=== PATIENT | female | born 1980 | race Caucasian/White ===

== ENCOUNTER 2016-07-29 21:15 | Inpatient (IN) | payer MEDICAID ==
[~2016-07-29] VITALS: Ht 154.9 cm; Wt 67.1 kg
[2016-07-29] VITALS (11 sets, daily range): BP systolic 109–121; BP diastolic 67–81; PULSE 74–88; RESP 16–18; TEMP 98
[~2016-07-29 21:15] MED LIST: ACYC800T PO; BUSP1TAB PO; PREN1TAB PO; RANI150T PO; ZOFR4TAB PO
[2016-07-29] MEDS ORDERED: LACTATED RINGER'S 1000 ML INJ 1,000 ML IV PRN (21:55)
[2016-07-29] MEDS ORDERED: LACTATED RINGER'S 1000 ML INJ 1,000 ML IV SCH (21:55)
[2016-07-29] MEDS ORDERED: SODIUM CHLORID 0.9% 500 ML INJ 500 ML IV PRN (22:00)
[2016-07-29] MEDS ORDERED: MINERAL OIL 10 ML VIAL TOPICAL PRN (22:00)
[2016-07-29] MEDS ORDERED: LIDOCAINE HCL 1% 50 ML VIAL I-DERMAL PRN (22:00)
[2016-07-29] MEDS ORDERED: OXYTOCIN 30 UNITS-500ML PREMIX 500 ML IV ONE (22:00)
[2016-07-29] MEDS ORDERED: LIDOCAINE HCL 1% 50 ML VIAL INFIL PRN (22:00)
[2016-07-29] MEDS ORDERED: CITRIC ACID-SODIUM CITRATE LIQ 30 ML UDC PO SCH (22:00)
--- NOTE | 2016-07-29 22:01 | HHI.HP ---
HPI Chief Complaint Contraction pain Date Seen: Jul 29, 2016 Travel History International Travel<30 Days: No Contact w/Intl Traveler<30Days: No Known Affected Area: No History of Present Illness HPI Patient is a 35-year-old white female at 39 weeks presents planning regular painful contractions. Denies bleeding or rupture the membranes contractions are regular and heart rate tracing is reactive. [facility] records are available Para: 3 : 4 History Obstetric History Obstetric History 3 vaginal deliveries Family History Family History: Negative Social History Alcohol Use: No Tobacco Use: Yes Substance Abuse: No Allergies-Medications (Allergen,Severity, Reaction): Coded Allergies: No Known Allergies (Verified , 07/29/16) Home Meds Active Scripts Acyclovir 800 Mg [id number] Mg PO BID #60 TAB Ref 0 Prov:Edna Buchanan CNM [employer]ILLANCE SUPERVISOR 07/29/16 Ranitidine 150 Mg [id number] Mg PO BID #60 TAB Ref 4 Prov:Luana Romero SURVEILLANCE SUPERVISOR 05/27/16 Reported Medications W/O A Vit W/ Fe Fumar (Vitafol-Jacki 18-0.6-0.4 mg)1 Tab Tab Po #60 03/21/16 Ondansetron (Zofran)4 Mg Tab4 Mg PO Q6HR PRN (NAUSEA OR VOMITING) #10 TAB Ref 0 03/21/16 Buspirone 7.5 Mg Tab7.5 Mg PO BID Ref 0 03/21/16 Discontinued Reported Medications Acyclovir 800 Mg [id number] Mg PO BID #60 TAB Ref 0 03/21/16 Review of Systems General / Constitutional: No: Fever, Weight Gain, Chills, Other Eyes: No: Diploplia, Blurred Vision, Visual changes, Pain, Photophobia HENT: No: Headaches, Vertigo, Lightheadedness Cardiovascular: No: Irregular Rhythm, Chest Pain or Discomfort, Palpitations, Tachycardia, Syncope, Varicosities, Edema, Cyanosis Respiratory: No: Cough, Short of Breath, Other Gastrointestinal: No: Nausea, Vomiting, Diarrhea Genitourinary: No: Decreased Urinary Output, Oliguria Musculoskeletal: No: Limited ROM, Weakness, Cramping, Edema, Pain Skin: No Rash, No Itching, No Dryness, No Lumps, No Change in Pigmentation, No Change in Nails, No Alopecia, No Lesions Neurologic: No: Weakness, Dizziness, Syncope, Focal Abnormalities, Coordination Problem, Headache, Slurred Speech, Seizures Psychiatric: No: Depression, Suicidal Ideations, Homicidal Ideation Endocrine: No: Heat Intolerance, Cold Intolerance, Polydipsia, Polyuria, Other Physical Exam Narrative GENERAL: Well-nourished, well-developed patient. SKIN: Warm and dry. HEAD: Normocephalic and atraumatic. EYES: No scleral icterus. No injection or drainage. ENT: No nasal drainage noted. Mucous membranes pink. Airway patent. NECK: Supple, trachea midline. No JVD. CARDIOVASCULAR: Regular rate and rhythm without murmurs, gallops, or rubs. RESPIRATORY: Breath sounds equal bilaterally. No accessory muscle use. BREASTS: Bilateral exam showed no masses , no retractions, no nipple discharge. ABDOMEN/GI: Abdomen soft, non-tender, bowel sounds present, no rebound, no guarding Gravid to [39-] weeks size Fundal Height: [39-] GENITOURINARY: External Genitalia: intact and normal in appearance BUS glands: [-] Cervix: [-] Dilatation: [4-] Effacement: [70-] Station: [-3] Presentation: [vtx-] Membranes: [intact ] Uterine Contractions: [reg-] FHT's: Category: [-1] Baseline: [-144] Reactive: [-yes] Variability: [mod-] Decels: [-none] EXTREMITIES: No cyanosis or edema. BACK: Nontender without obvious deformity. No CVA tenderness. NEUROLOGICAL: Awake and alert. Motor and sensory grossly within normal limits. Five out of 5 muscle strength in all muscle groups. Normal speech. Data Data Orders Admit To Inpatient (07/29/16 ) Vital Signs (Adult) .Per protocol (07/29/16 21:55) ^ Heart (07/29/16 21:55) ^ Amnioinfusion (07/29/16 21:55) Urinary Catheter Management .ONCE (07/29/16 21:55) Diet Npo (07/30/16 Breakfast) Lactated Ringer's 1000 Ml Inj (Lr 1000 M (07/29/16 21:55) Assessment/Plan Assessment and Plan This patient is a 35-year-old white female at 39 weeks presents in labor. Cervix is 4 cm 70% -3 station ballotable vertex intact membranes, no vaginal bleeding noted. [facility] records are available [facility] Plan this patient be admitted for labor management, augmentation if needed and vaginal delivery will be anticipated Fredis Hernández II, MD Jul 29, 2016 22:01
[2016-07-29] MEDS ORDERED: SODIUM CHLOR 0.9% 1000 ML INJ 1,000 ML IV PRN (22:15)
[2016-07-29 23:09] LABS: AUTOMATED NEUTROPHIL # 7.8 TH/MM3 (1.8-7.7); BASOPHIL # 0.1 TH/MM3 (0-0.2); BASOPHIL % 0.5 % (0.0-2.0); EOSINOPHIL % 0.4 % (0.0-4.0); HEMATOCRIT 36.7 % (35.0-46.0); HEMO FLAGS DIFF FINAL; LYMPH % 24.7 % (9.0-44.0); LYMPHOCYTE # 2.8 TH/MM3 (1.0-4.8); MEAN CELL VOLUME 86.5 FL (80.0-100.0); MEAN CORPUSCULAR HEMOGLOBIN 29.4 PG (27.0-34.0); MONO % 5.9 % (0.0-8.0); NEUT % 68.5 % (16.0-70.0); PLATELET COUNT 186 TH/MM3 (150-450); RED BLOOD COUNT 4.24 MIL/MM3 (4.00-5.30); RED CELL DISTRIBUTION WIDTH 13.1 % (11.6-17.2); WHITE BLOOD COUNT 11.3 TH/MM3 (4.0-11.0)
[2016-07-29 23:13] LABS: BLOOD, URINE NEG (NEG); CALCIUM OXALATE CRYSTALS,URINE MANY /hpf; COMMENT (UR) CULT NOT INDICATED; CULTURE IF INDICATED CULT NOT INDICATED; GLUCOSE,URINE NEG (NEG); HYALINE CAST, URINE 2 /lpf (RARE); KETONE, URINE NEG (NEG); MUCUS URINE FEW /lpf (OCC); NITRITE,URINE NEG (NEG); SQUAMOUS EPITHELIAL CELL URINE 3 /hpf (0-5); URINE COLOR YELLOW (YELLW/STRAW)
[2016-07-29] MEDS ORDERED: fentaNYL 2MCG-BUPIV 0.125% INJ 100 ML ONE (23:18)
[2016-07-30] VITALS (70 sets, daily range): BP systolic 61–124; BP diastolic 51–80; PULSE 63–95; RESP 16–18; TEMP 97.8–98.1; O2SAT 99–100
[2016-07-30] MEDS ORDERED: fentaNYL 2MCG-BUPIV 0.125% 100 ML EPIDURAL SCH (00:15)
[2016-07-30] MEDS ORDERED: DO NOT ADMINISTER ANTICOAGULANTS XX PRN (00:15)
[2016-07-30] MEDS ORDERED: ePHEDrine/NS 25 MG/5 ML SYR IV PRN (00:15)
[2016-07-30] MEDS ORDERED: NO SYSTEM NARCOTICS XX PRN (00:15)
[2016-07-30] MEDS ORDERED: ONDANSETRON HCL 4 MG/2 ML VIAL ONE (00:31)
--- NOTE | 2016-07-30 04:50 | PD.OB.DELI ---
Anesthesia: Epidural Episiotomy: None Vaginal Delivery: Normal Presentation: Occiput anterior Nuchal Cord: x2 Delayed cord clamping (45 sec): Yes : Female, Single One Minute : 9 Five Minute : 9 Weight: 3300 gm Care: Suctioned, Spontaneous crying, Responded to stimulation Placenta: Spontaneous delivery, Intact Laceration: No lacerations Fredis Henrández II, MD Jul 30, 2016 04:50
[2016-07-30] MEDS ORDERED: WITCH HAZEL 50%/GLYCERIN 12.5% 40 PAD JAR TOPICAL PRN (05:00)
[2016-07-30] MEDS ORDERED: oxyCODONE/ACETAMINOPHEN 5 MG/325 MG TAB PO PRN (05:00)
[2016-07-30] MEDS ORDERED: ZOLPIDEM TARTRATE 5 MG TAB PO PRN (05:00)
[2016-07-30] MEDS ORDERED: ONDANSETRON ODT 4 MG TAB PO PRN (05:00)
[2016-07-30] MEDS ORDERED: SODIUM CHLORIDE 0.9% FLUSH 10 ML FLUSH IV FLUSH PRN (05:00)
[2016-07-30] MEDS ORDERED: ALUMINUM/MAGNESIUM/SIMETH 30 ML CUP PO PRN (05:00)
[2016-07-30] MEDS ORDERED: BENZOCAINE 20% TOPICAL SPRAY 60 ML CAN TOPICAL PRN (05:00)
[2016-07-30] MEDS ORDERED: SODIUM CHLORIDE 0.9% FLUSH 10 ML FLUSH IV FLUSH SCH (09:00)
[2016-07-30] MEDS: IBUPROFEN 600 MG TAB PO PRN ×2 (09:31→17:08)
[2016-07-30] MEDS: DOCUSATE SODIUM 50 MG/SENNA 8.6 MG TAB PO PRN (09:32)
[2016-07-30] MEDS ORDERED: DIPHTH/TETANUS/ACEL PERTUSSIS (BOOSTER) 0.5 ML VIAL/PFS IM ONE (16:00)
[2016-07-30] MEDS ORDERED: MEASLES, MUMPS, RUBELLA VACCINE 0.5 ML VIAL SQ ONE (16:00)
[2016-07-31] MEDS: ACETAMINOPHEN 325 MG TAB PO PRN ×2 (00:03→07:41)
[2016-07-31] MEDS: IBUPROFEN 600 MG TAB PO PRN ×2 (00:05→07:41)
--- NOTE | 2016-07-31 07:16 | HHI.OB ---
Subjective Post Day: 1 Remarks Patient seen and examined this morning. AFVSS overnight. She is currently baby without any reported issues. Denies breast tenderness or erythema. She states her vaginal bleeding is slightly decreased from yesterday. Pain is well controlled. Ambulating without issues. Moving bowels and bladders without issues. Appetite is good, no nausea or vomiting. She plans to have a Mirena IUD placed and states she will [facility]. Objective Vitals/I&O Vital Signs Date Time Temp Pulse Resp B/P Pulse Ox O2 Delivery O2 Flow Rate FiO2 07/30/16 20:30 77 16 106/69 07/30/16 20:30 98.1 07/30/16 08:45 98.0 68 18 113/69 Objective Remarks GENERAL: Well-nourished, well-developed patient. CARDIOVASCULAR: Regular rate and rhythm without murmurs, gallops, or rubs. RESPIRATORY: Breath sounds equal bilaterally. No accessory muscle use. ABDOMEN/GI: Abdomen soft, non-tender. Fundus: Firm, non-tender at umbilicus. GENITOURINARY: Light to moderate bleeding. EXTREMITIES: No cyanosis or edema, non-tender, without signs of DVT. Medications and IVs Current Medications Medications (Trade) Dose Ordered Sig/Christa Route Start Time Stop Time Status Last Admin (NS Flush) 2 ml BID IV FLUSH 07/30/16 09:00 (NS Flush) 2 ml UNSCH PRN IV FLUSH 07/30/16 05:00 (Tylenol) 650 mg Q4H PRN PO 07/30/16 05:00 07/31/16 00:03 (Motrin) 600 mg Q6H PRN PO 07/30/16 05:00 07/31/16 00:05 (Percocet 5-325 Mg) 1 tab Q4H PRN PO 07/30/16 05:00 (Americaine 20% Top Spr) 1 spray Q4H PRN TOPICAL 07/30/16 05:00 07/30/16 09:31 (Tucks Pads) 1 applic QID PRN TOPICAL 07/30/16 05:00 07/30/16 09:32 (Rosalia-Colace) 2 tab Q12H PRN PO 07/30/16 05:00 07/30/16 09:32 (Ambien) 5 mg HS PRN PO 07/30/16 05:00 (Mag-Al Plus Susp Liq) 15 ml Q8H PRN PO 07/30/16 05:00 (Zofran Odt) 4 mg Q6H PRN PO 07/30/16 05:00 (Flu (Quadrivalent) Vaccine Inj) 0.5 ml ONCE ONCE IM 07/31/16 10:00 07/31/16 10:01 Assessment/Plan Problem List: (1) care following vaginal delivery Assessment and Plan Patient is a 35 year old who is PPD#1. 1. care - AFVSS - Motrin and Tylenol prn pain or cramping - Encouraged OOB, as tolerated - Advised pelvic rest x6 weeks - without any issues - Contraception: plans to have Mirena IUD placed, will [facility] - Stable for discharge today if desiring to go home dw Gigi Kearney MD R1 Jul 31, 2016 07:16
[2016-07-31 07:50] VITALS: BP 105/74; PULSE 84; RESP 16; TEMP 98.6
[2016-07-31] MEDS: DOCUSATE SODIUM 50 MG/SENNA 8.6 MG TAB PO PRN (08:26)
[2016-07-31] MEDS ORDERED: INFLUENZA VIRUS VACCINE (QUADRIVALENT) 0.5 ML SYR IM ONE (10:00)
[2016-07-31] MEDS ORDERED: DIPHTH/TETANUS/ACEL PERTUSSIS (BOOSTER) 0.5 ML VIAL/PFS IM ONE (11:00)
[2016-07-31] MEDS ORDERED: IBUP-232 PO (11:51)
--- NOTE | 2016-07-31 11:52 | HHI.DCPOC ---
Discharge Care Plan Diagnosis: (1) care following vaginal delivery Report Symptoms to Your Doctor -Temperate above 100.5 degrees -Redness, of incision or excessive or foul smelling drainage -Unusual pain or calf pain -Increased vaginal bleeding -Painful or difficulty urinating -Feelings of extreme sadness or anxiety after 2 weeks Goals to Promote Your Health * To maintain your health at the optimal level, follow up with your OB provider within 6 weeks following leaving the hospital. Directions to Meet Your Goals Take your medications as prescribed Follow your dietary instruction Follow activity as directed Ensure plenty of rest for recovery Drink fluids for hydration Keep your appointments as scheduled Take your immunizations and boosters as scheduled If your symptoms worsen call your PCP, if no PCP go to Urgent Care Center or Emergency Room Smoking is Dangerous to Your Health. Avoid second hand smoke Call the 24-hour crisis hotline for domestic abuse at Gigi Coelho MD R1 Jul 31, 2016 11:52
[2016-08-29] MEDS ORDERED: LEVO1IUD4 (14:50)
[2016-08-29] MEDS ORDERED: DICL250 PO (14:55)
== END 2016-07-31 13:26 | disposition home or self-care (01) | DRG 775 ==
LOC: HOBED 21:15 → H2EB 21:57 → H1EA 07-30 07:55
PROVIDERS: ADMIT Obstetrics & Gynecology Maternal & Fetal Medicine; ATTEND Obstetrics & Gynecology Maternal & Fetal Medicine
PROC: 10E0XZZ Delivery of Products of Conception, External Approach (ICD-10-PCS; principal; 2016-07-30)
DX: O69.81X0 Labor and delivery complicated by cord around neck, without compression, not applicable or unspecified (principal); O99.334 Smoking (tobacco) complicating childbirth; Z37.0 Single live birth; Z3A.39 39 weeks gestation of pregnancy
CPT/HCPCS: 59025; 81001; 85025; 86900; 86901; 90715; 99285; J2405; J7120

== ENCOUNTER 2017-07-13 23:15 | Emergency (ER) | payer SELFPAY ==
[~2017-07-13] VITALS: Ht 157.5 cm; Wt 50.0 kg
[~2017-07-13 23:15] MED LIST changes: -ACYC800T PO; -BUSP1TAB PO; +IBUP-232 PO; +LEVO1IUD4; -RANI150T PO; -ZOFR4TAB PO
[2017-07-13 23:18] VITALS: BP 127/72; PULSE 134; RESP 18; TEMP 98.2; O2SAT 95
[2017-07-14] MEDS ORDERED: SODIUM CHLOR 0.9% 1000 ML INJ 1,000 ML IV ONE
[2017-07-14 00:25] LABS: AUTOMATED NEUTROPHIL # 5.6 TH/MM3 (1.8-7.7); BASOPHIL # 0.1 TH/MM3 (0-0.2); BASOPHIL % 0.6 % (0.0-2.0); EOSINOPHIL # 0.1 TH/MM3 (0-0.4); EOSINOPHIL % 0.5 % (0.0-4.0); HEMATOCRIT 39.1 % (35.0-46.0); HEMOGLOBIN 13.2 GM/DL (11.6-15.3); LYMPH % 47.1 % (9.0-44.0); LYMPHOCYTE # 5.7 TH/MM3 (1.0-4.8); MEAN CELL VOLUME 92.2 FL (80.0-100.0); MEAN CORPUSCULAR HEMOGLOBIN 31.1 PG (27.0-34.0); MEAN CORPUSCULAR HGB CONC 33.7 % (32.0-36.0); MONO % 5.1 % (0.0-8.0); MONOCYTE # 0.6 TH/MM3 (0-0.9); NEUT % 46.7 % (16.0-70.0); PLATELET COUNT 263 TH/MM3 (150-450); RED BLOOD COUNT 4.24 MIL/MM3 (4.00-5.30); RED CELL DISTRIBUTION WIDTH 13.3 % (11.6-17.2)
[2017-07-14 00:54] LABS: BICARBONATE 24.2 MEQ/L (21.0-32.0); BLOOD UREA NITROGEN 14 MG/DL (7-18); CALCIUM 9.7 MG/DL (8.5-10.1); CHLORIDE 105 MEQ/L (98-107); CREATININE 0.84 MG/DL (0.50-1.00); GLOMERULAR FILTRATION RATE 77 ML/MIN (>89); GLUCOSE,RANDOM 162 MG/DL (74-106); MAGNESIUM 1.9 MG/DL (1.5-2.5); SODIUM (NA) 141 MEQ/L (136-145)
[2017-07-14 01:46] LABS: BANDS 4 % (0-6); LYMPHOCYTES 39 % (9-44); MONOCYTES 3 % (0-8); POLYS (SEG NEUTROPHILS) 54 % (16-70)
[2017-07-14 02:40] VITALS: BP 100/56; PULSE 93; RESP 16; O2SAT 98
--- NOTE | 2017-07-14 02:48 | PD ---
HPI Chief Complaint: drug use Time Seen by Provider: 23:35 Travel History International Travel<30 days: No Contact w/Intl Traveler<30days: No Traveled to known affect area: No History of Present Illness HPI 36yo F with PMH of anxiety presents to the ED with c/o burning in her face and crying after eating a cookie that has marajuana in it. said she has never had marajuana. Denies any fever, chest pain, sob, n/v, abdominal pain, focal weakness or numbness. PFSH Past Medical History ADD: Yes ADHD: Yes Anxiety: Yes Diminished Hearing: No Psychiatric: Yes (PTSD, ) Immunizations Current: Yes Influenza Vaccination: No ?: Unknown : 4 Para: 3 Past Surgical History Surgical History: No Previous Surgery Social History Alcohol Use: Yes (occas) Tobacco Use: No Substance Use: Yes (edible marijuana) Allergies-Medications (Allergen,Severity, Reaction): Coded Allergies: No Known Allergies (Verified Adverse Reaction, Unknown, 07/13/17) Reported Meds & Prescriptions Reported Meds & Active Scripts Active Review of Systems Except as stated in HPI: all other systems reviewed are Neg Physical Exam Narrative GENERAL: 36yo F in mild distress. SKIN: Focused skin assessment warm/dry. HEAD: Atraumatic. Normocephalic. EYES: Pupils equal and round at 3mm bilaterally. EOMI. ENT: No nasal bleeding or discharge. Mucous membranes pink and moist. NECK: Trachea midline. No JVD. CARDIOVASCULAR: Regular rate and rhythm. No murmur appreciated. RESPIRATORY: No accessory muscle use. Clear to auscultation. Breath sounds equal bilaterally. GASTROINTESTINAL: Abdomen soft, non-tender, nondistended. MUSCULOSKELETAL: No obvious deformities. No clubbing. No cyanosis. No edema. NEUROLOGICAL: Awake and alert. No obvious cranial nerve deficits. Motor grossly within normal limits in all extremities. Sensation intact. Normal speech. Data Data Last Documented VS Vital Signs Date Time Temp Pulse Resp B/P (MAP) Pulse Ox O2 Delivery O2 Flow Rate FiO2 07/14/17 02:40 93 16 100/56 (71) 98 Room Air 07/13/17 23:18 98.2 Orders Orders Complete Blood Count With Diff (07/13/17 23:51) Basic Metabolic Panel (Bmp) (07/13/17 23:51) Alcohol (Ethanol) (07/13/17 23:51) Sodium Chlor 0.9% 1000 Ml Inj (Ns 1000 M (07/14/17 00:00) Ondansetron Inj (Zofran Inj) (07/14/17 00:00) Magnesium (Mg) (07/13/17 23:51) Ondansetron Inj (Zofran Inj) (07/14/17 03:00) Potassium Chloride (Kcl) (07/14/17 03:00) Labs Laboratory Tests Test 07/13/17 23:45 White Blood Count 12.0 TH/MM3 Red Blood Count 4.24 MIL/MM3 Hemoglobin 13.2 GM/DL Hematocrit 39.1 % Mean Corpuscular Volume 92.2 FL Mean Corpuscular Hemoglobin 31.1 PG Mean Corpuscular Hemoglobin Concent 33.7 % Red Cell Distribution Width 13.3 % Platelet Count 263 TH/MM3 Mean Platelet Volume 8.0 FL Neutrophils (%) (Auto) 46.7 % Lymphocytes (%) (Auto) 47.1 % Monocytes (%) (Auto) 5.1 % Eosinophils (%) (Auto) 0.5 % Basophils (%) (Auto) 0.6 % Neutrophils # (Auto) 5.6 TH/MM3 Lymphocytes # (Auto) 5.7 TH/MM3 Monocytes # (Auto) 0.6 TH/MM3 Eosinophils # (Auto) 0.1 TH/MM3 Basophils # (Auto) 0.1 TH/MM3 CBC Comment AUTO DIFF Differential Total Cells Counted 100 Neutrophils % (Manual) 54 % Band Neutrophils % 4 % Lymphocytes % 39 % Monocytes % 3 % Neutrophils # (Manual) 7.0 TH/MM3 Differential Comment FINAL DIFF MANUAL Platelet Estimate NORMAL Platelet Morphology Comment NORMAL Blood Urea Nitrogen 14 MG/DL Creatinine 0.84 MG/DL Random Glucose 162 MG/DL Calcium Level 9.7 MG/DL Magnesium Level 1.9 MG/DL Sodium Level 141 MEQ/L Potassium Level 3.3 MEQ/L Chloride Level 105 MEQ/L Carbon Dioxide Level 24.2 MEQ/L Anion Gap 12 MEQ/L Estimat Glomerular Filtration Rate 77 ML/MIN Ethyl Alcohol Level LESS THAN 3 MG/DL MDM Medical Decision Making Medical Screen Exam Complete: Yes Emergency Medical Condition: Yes Differential Diagnosis Drug induced effects Narrative Course 36yo F here with c/o crying and feeling nauseous after eating edible marajuana. HR was elevated initially so given NS IVF x1. HR improved after NS IVF. Labs reviewed, WBC 12. BMP showed mild hypokalemia, replaced orally. Alcohol negative. Pt now feels a little nauseous so will give zofran. Pt reevaluated at bedside and is now feeling much better. Pt has been observed in the ED and no longer has any symptoms. Tolerating PO. Her is here to bring her own. Return precautions given. Diagnosis Primary Impression: Drug use Patient Instructions: General Instructions Departure Forms: Tests/Procedures Additional Instructions: Please follow up with your primary care physician in 2-3 days. Return to the ED if symptoms worsen. Med/Other Pt SpecificInfo: No Change to Meds Disposition: 01 DISCHARGE HOME Condition: Stable RozMaria De Jesus DO Jul 14, 2017 02:48
[2017-07-14] MEDS ORDERED: ONDANSETRON HCL 4 MG/2 ML VIAL IV PUSH ONE ×2 (03:00)
[2017-07-14] MEDS ORDERED: POTASSIUM CHLORIDE 20 MEQ CONTROLLED RELEASE TAB PO ONE (03:00)
== END 2017-07-14 04:11 | disposition home or self-care (01) ==
LOC: NEPC 23:15
DX: F12.90 Cannabis use, unspecified, uncomplicated (principal); E87.6 Hypokalemia
CPT/HCPCS: 80048; 80307; 83735; 85007; 85027; 96361; 96374; 96375; 99284; J2405; J7030